=== PATIENT | female | born 1940 | race Caucasian/White ===

== ENCOUNTER 2023-05-15 11:07 | Day surgery (SDC) | payer MEDICARE ==
[2023-05-15] MEDS ORDERED: LIDOCAINE HCL 1% 50 MG/5 ML VL PF IJ ONE (11:08)
[2023-05-15] MEDS ORDERED: Depo-Medrol 40 MG/ML IM ONE (11:08)
[2023-05-15] MEDS ORDERED: Sodium Chloride 0.9(Preservative Free) 10 ML IJ ONE (11:08)
[2023-05-15] MEDS ORDERED: Lactated Ringers 1,000 ML IV ONE (12:57)
[2023-05-15] MEDS ORDERED: DIPRIVAN 200 MG/20 ML IV ONE (12:57)
--- NOTE | 2023-05-15 14:05 | XRAY ---
Indication: Lumbar ANASTACIA. Intraoperative fluoroscopy provided for 23 seconds. 2 digital spot image submitted for interpretation demonstrates posterior needle tip projecting posterior to lumbosacral junction. Small amount of contrast injected for needle tip placement. Correlate with intraoperative findings/report.
--- NOTE | 2023-05-15 14:44 | XRAY ---
23 seconds of fluoroscopy was used in surgery for a lumbar ANASTACIA.
== END 2023-05-15 12:35 | disposition home or self-care (01) ==
LOC: SDC-PAIN 11:07
PROVIDERS: ATTEND Psychiatry & Neurology Pain Medicine
DX: M54.16 Radiculopathy, lumbar region (principal)
CPT/HCPCS: 62323; 72100; 77003; J1030; J2001; J2704; Q9966